=== PATIENT | female | born 1935 | race Caucasian/White ===

== ENCOUNTER 2016-07-03 09:50 | Inpatient (IN) | payer OTHER, SELFPAY ==
[~2016-07-03] VITALS: Ht 160 cm; Wt 56.4 kg
--- NOTE | ~2016-07-03 | EKG ---
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 : 1935 Requested By: Marci Ramsey Order Number: [id number] MD: Waylon Hernandez Measurements Intervals [place] Rate: 133 P: [place]: QRS: 43 QRSD: 80 T: 167 QT: 294 QTc: 438 Interpretive Statements Atrial fibrillation Probable LVH with secondary repol abnrm Baseline wander in lead(s) V1,V3 Compared to ECG 07/03/2016 10:17:05 No significant change was found Electronically Signed On 07-08-2016 8:46:36 LIME PULLER by Waylon Hernandez [email or web address] <ELECTRONICALLY SIGNED> By: Waylon Hernandez MD, [facility] 07/08/16 0846 [id number] 0414 Waylon Hernandez MD, [facility] /EPI
--- NOTE | ~2016-07-03 | P ---
[facility] [place] [address] [place] [address] PROCEDURE REPORT Name: NAYA BRUCE Room #: [facility] M.R[facility]#: [id number] Admission: 07/03/16 Attend Phys: Bruce Ramirez MD Discharge: Date of : 34 Report #: [id number] THIS REPORT FOR: //name// CC: Rusty Whiteside DO Bruce Ramirez MD DATE OF SERVICE: 07/11/[address] Rusty Whiteside and Dr. Bruce Ramirez. PROCEDURE: Diagnostic flexible sigmoidoscopy. INDICATION FOR PROCEDURE: The patient is a very pleasant 81-year-old female with a sudden onset of hematochezia and melena shortly after beginning her Eliquis that she took for sudden onset of atrial fibrillation on 07/08/2016. The etiology of this blood loss is unclear and she has consented to flexible sigmoidoscopy to further evaluate for possible diverticular bleeding. DESCRIPTION OF PROCEDURE: Informed consent for this procedure was obtained prior to the administration of any medication. The risks of the procedure which include bleeding, perforation, infection, complications of sedation and the possibility I could miss something have been explained to the patient and she has indicated her consent by signing. Propofol was slowly titrated before and during this procedure for patient comfort by the anesthesia service. The [employer] colonoscope was introduced through the anal sphincter and advanced under direct visualization to the mid transverse colon. At this point, I was still seeing blood in the lumen and though I tried to clean the colon out further and advance the scope, I really could not see anything beyond this point. Therefore, the scope was slowly withdrawn with circumferential views of the colon taken on the way out from the mid transverse colon to the distal transverse colon, the mucosa appeared normal. There was blood throughout the entire visualized colon. The splenic flexure appeared normal. Descending colon appeared normal. Sigmoid colon appeared normal. I did not see any diverticulosis. Rectum, normal mucosa. Retroflex view did not reveal any other abnormalities. The scope was withdrawn. The patient went to the recovery area in stable condition. She tolerated the procedure well. It should be noted that she had a very poor prep and I spent probably close to an hour trying to clean out the left side of her colon, so I could visualize it adequately but still did not see all portions of the left colon. RECOMMENDATIONS: At this point are for her to have a full colonoscopy prep and a colonoscopy as well as an EGD. I think that also she may need an M2 capsule [address] [address] PROCEDURE REPORT Name: NAYA BRUCE Room #: 216[facility] .R.#: [id number] Admission: 07/03/16 Attend Phys: Bruce Ramirez MD Discharge: Date of : 34 Report #: [id number] study for not able to identify the source of blood loss on the colonoscopy and EGD. Prior to this procedure, I had asked for permission to do an EGD if we did not identify the source on flexible sigmoidoscopy and the patient did not want to have an EGD at this time. Would recommend we monitor her H and H closely. Thank you very much once again for allowing me to participate in her care, Dr. Ramirez and Dr. Whiteside. <ELECTRONICALLY SIGNED> By: Carole Cantu DO 07/11/16 [id number] [id number] Carole Cantu DO /nt
--- NOTE | ~2016-07-03 | HC ---
[facility] [place] [place] [address] CONSULTATION Name: NAYA BRUCE Room #: 216-P [facility] IN M.R.#: [id number] Admission: 07/03/16 Attend Phys: Bruce Ramirez MD Discharge: 07/16/16 Date of : 34 Report #: [id number] THIS REPORT FOR: //name// CC: Rusty Whiteside DO Bruce Hernandez MD DATE OF SERVICE: 07/07/2016 REFERRING PROVIDER: Dr. Nicci Hernandez. REASON FOR CONSULTATION: Pneumonia. CHIEF COMPLAINT: Shortness of breath. HISTORY OF PRESENT ILLNESS: Our group was asked to see the patient in consultation while hospitalized at [facility]. A very pleasant 81-year-old woman with a past medical history significant for COPD, typically on p.r.n. albuterol, which she states she does not need very often. There is no chronic cough or congestion. She is a little bit confused. The daughter assists with some of the history. Patient notes having some injury to one of her toes, having a small fracture and it prompted emergency room visit; however, when the daughter went to pick her up to take her to podiatry appointment, it was noted that she had increasing shortness of breath and brought her to the emergency department 3 days ago. Since that time has developed increasing shortness of breath and productive cough. Chest x-ray today revealed right basilar infiltrate. There was some concern for pulmonary edema related to atrial fibrillation as well as she had some small pleural effusions, has been undergoing some diuresis. However, because of increasing cough and change in radiograph, she started on therapy for community-acquired pneumonia and we were asked to further evaluate. Currently, has some loose cough, unable to produce any sputum, no fevers, chills or sweats. No recent contacts lives alone. No recent travel. No prior history of tuberculosis or other disease. Of note, the patient has had some complaints of dysphagia, states she has to be more intentional about her eating and swallowing and coughing while eating. ALLERGIES: None known. PAST MEDICAL HISTORY: 1. History of COPD, severity not quantified, not oxygen requiring. 2. History of hypertension. 3. History of hypothyroidism. OUTPATIENT MEDICATIONS: Include Synthroid, albuterol, calcium, amlodipine, [facility] [address] [place] [address] CONSULTATION Name: NAYA BRUCE Room #: 216-P [facility] IN M.R.#: [id number] Admission: 07/03/16 Attend Phys: Bruce Ramirez MD Discharge: 07/16/16 Date of : 34 Report #: [id number] lisinopril, multivitamin, cetirizine, Protonix, carvedilol, atorvastatin, triamterene/hydrochlorothiazide. SOCIAL HISTORY: The patient is an active smoker, smoking a few cigarettes daily, lives alone. No alcohol consumption. FAMILY HISTORY: Negative for any pulmonary disease. REVIEW OF SYSTEMS: CONSTITUTIONAL: No fevers, chills or sweats, change in weight or appetite. ENT: No upper respiratory congestion, rhinorrhea, some dysphagia as described in HPI. CARDIOVASCULAR: No chest pains or palpitations. GASTROINTESTINAL: No nausea, vomiting, diarrhea, constipation or abdominal pain. GENITOURINARY: No dysuria, no frequency. INTEGUMENT: Denies any new rash. Notes some bruising in her lower extremities including her left middle toes. MUSCULOSKELETAL: Toe pain as described in the HPI. Rest of 12 point review of systems is normal except for some confusion today which is unusual. PHYSICAL EXAMINATION: VITAL SIGNS: Afebrile, pulse 60, respiratory rate 22, blood pressure 100/60, oxygen saturation 94% on 3 liters. GENERAL: This is a pleasant elderly woman in no distress. HEENT: Clear oropharynx. Mallampati 1 airway. NECK: Supple. No lymphadenopathy. Jugular venous pressure not elevated. LUNGS: Diminished. Right basilar inspiratory crackles and diffuse expiratory wheezes noted. BACK: Revealed significant kyphosis of the upper thoracic spine. CARDIOVASCULAR: Heart was regular. No murmurs appreciated. ABDOMEN: Soft, nontender, no masses. EXTREMITIES: Warm, 2+ pulses and 1+ edema. LABORATORY DATA: White blood cell count 14,000, hemoglobin 9, hematocrit 28, platelet count 246. Sodium 141, potassium 5.0, chloride 104, bicarbonate 30, BUN 52, creatinine 1.6, glucose 104. No arterial blood gas. Chest x-ray reveals hyperinflation consistent with COPD, bibasilar pleural effusions noted. There is a right greater than left basilar infiltrates, worse when compared to prior radiographs. IMPRESSION: 1. Community-acquired pneumonia, would be concerned about aspiration given some of her dysphagia symptoms. 2. Chronic obstructive pulmonary disease with acute exacerbation. 3. Atrial fibrillation. [facility] [address] [place] [address] CONSULTATION Name: NAYA BRUCE Room #: 216-P [facility] IN M.R.#: [id number] Admission: 07/03/16 Attend Phys: Bruce Ramirez MD Discharge: 07/16/16 Date of : 34 Report #: [id number] 4. Pulmonary edema consistent with congestive heart failure. 5. Ongoing tobacco use. 6. Anemia. SUGGEST: 1. Flutter valve for airway clearance. 2. Systemic steroid with taper. 3. Continue with current antibiotics. 4. Speech therapy to evaluate and treat for possible dysphagia with aspiration. 5. Follow radiographs. 6. Ambulate as physical and occupational therapy. Do not mobilize. 7. We will follow along with you. Thank you for requesting our suggestions. <ELECTRONICALLY SIGNED> By: Kimani Bailey MD 07/21/16 0903 1718 0054 Kimani Bailey MD /nt
--- NOTE | ~2016-07-03 | HC ---
[facility] [place] [address] [place] [place] [address] CONSULTATION Name: NAYA BRUCE Room #: 216-P [facility] IN M.R.#: [id number] Admission: 07/03/16 Attend Phys: Bruce Ramirez MD Discharge: 07/16/16 Date of : 34 Report #: [id number] THIS REPORT FOR: //name// CC: Rusty Ramirez DATE OF SERVICE: 07/03/2016 REASON FOR CONSULTATION: Left foot fracture. HISTORY OF PRESENT ILLNESS: The patient is an 81-year-old female, who reports standing up about a week ago and noticing immediate left foot pain on the small toe side in her mid foot, she reports noting swelling and bruising. She has not had any specific treatment besides rest. She denies any other extremity injury. PAST MEDICAL HISTORY: Significant for COPD, hypertension, coronary artery disease, hypothyroidism. HOME MEDICATIONS REPORT: Include albuterol sulfate, calcium carbonate/vitamin D3, amlodipine, levothyroxine, aspirin, lisinopril, multivitamins, cetirizine, pantoprazole, carvedilol, atorvastatin, hydrochlorothiazide/triamterene, polyethylene glycol and acetaminophen. PAST SURGICAL HISTORY: She has had hysterectomy. SOCIAL HISTORY: She smokes about 8 cigarettes a day, typically lives at home by herself. Denies use of any ambulatory aids. She has young female at her bedside, who I believe is her granddaughter. ALLERGIES: No known drug allergies. REVIEW OF SYSTEMS: NEUROLOGIC: She reports numbness and tingling in her right hand upon awakening for the past few days. MUSCULOSKELETAL: See HPI. Denies any other extremity pain. LABORATORY STUDIES: Reviewed from 07/03/2016, which showed an elevated white blood cell count 12.6, hemoglobin 10.1, hematocrit 30.2, platelet count 236. Chemistry: Creatinine is elevated at 1.5. PHYSICAL EXAMINATION: GENERAL: She is alert and oriented, interacts appropriately ____. She is a well-developed, well-nourished female, in no acute distress. VITAL SIGNS: The Emergency Department vital signs done on 07/03/2016 at 09:58 a.m. include a pulse oximetry of 90% on 2 L, blood pressure 154/74, temperature is 36.7, heart rate 78, respiration rate is 18. [address] [address] CONSULTATION Name: NAYA BRUCE Room #: 216-[facility] IN M.R.#: [id number] Admission: 07/03/16 Attend Phys: Bruce Ramirez MD Discharge: 07/16/16 Date of : 34 Report #: [id number] Examination of her bilateral upper extremities, she has some mild diffuse arthritic changes in her digits. She is able to make full fist, full extension. Her sensation is intact to light touch throughout. She moves her wrists, forearms, elbows and shoulders without pain and fully darkened and Tinel's is negative bilaterally at the wrist. Right lower extremity exam: Sensation is intact to light touch throughout. She has brisk capillary refill. EHL, FHL, dorsiflexion and plantar flexion are intact. She has no deformity. Skin is clean, dry and intact. She has no tenderness to palpation throughout the right knee, leg, ankle or foot. No pain with range of motion of the right hip, knee, ankle or foot. Left lower extremity exam, she has some diffuse ecchymosis in her forefoot. 2+ dorsalis pedis pulse and normal sensation. Skin is clean, dry and intact. EHL, FHL, dorsiflexion and plantar flexion are intact. She has tenderness at the fifth metatarsal base. No other focal point tenderness. No tenderness at her ankle, leg, knee or thigh. No pain with range of motion of the left hip, knee or ankle. RADIOGRAPHS: Three views of left foot show an essentially nondisplaced fifth metatarsal base fracture. ASSESSMENT AND PLAN: Acute left fifth metatarsal base fracture. I discussed that at this point, I feel she most likely will do well with conservative treatment. We will order a Cam walker. She is to be nonweightbearing and I have recommended that she see my partner Dr. Figueroa Guzman at [facility] next week. She was given the phone numbers. She was advised to call for an appointment. We will have physical therapy start working with her in order to teach her how to ambulate without weightbearing on that foot. Questions were encouraged and answered to the best of my ability. <ELECTRONICALLY SIGNED> By: Irais Fu MD 07/28/16 1322 1644 0323 Irais Fu MD /nt
--- NOTE | ~2016-07-03 | EKG ---
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 : 1935 Requested By: Shivam Lawson Order Number: [id number] MD: Kenny Phipps Measurements Intervals [place] Rate: 77 P: 107 [place]: 164 QRS: 58 QRSD: 110 T: 99 QT: 376 QTc: 426 Interpretive Statements Incomplete analysis due to missing data in precordial lead(s) Sinus rhythm Artifact in lead(s) I,II,III,aVR,aVL,aVF Missing lead(s): V6 No previous ECG available for comparison Electronically Signed On 07-04-2016 11:07:44 OPERATIONS RESEARCH MANAGER by Kenny Phipps [email or web address] <ELECTRONICALLY SIGNED> By: Kenny Phipps MD 07/04/16 1107 1017 1017 Kenny Phipps MD /EPI
--- NOTE | ~2016-07-03 | EKG ---
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 : 1935 Requested By: Ladi Roe Order Number: [id number] MD: Waylon Hernandez Measurements Intervals [place] Rate: 145 P: [place]: QRS: 28 QRSD: 88 T: 169 QT: 288 QTc: 448 Interpretive Statements Atrial fibrillation with rapid V-rate Nonspecific ST segment abnormality no previous ECGs available for comparison Electronically Signed On 07-08-2016 8:37:06 WELFARE CENTRE MANAGER by Waylon Hernandez [email or web address] <ELECTRONICALLY SIGNED> By: Waylon Hernandez MD, [facility] 07/08/16 0837 D: [id number] Waylon Hernandez MD, FACC /EPI
--- NOTE | ~2016-07-03 | HC ---
[facility] [place] [address] [place] [address] CONSULTATION Name: NAYA BRUCE Room #: 216-P ADM IN M.R.#: [id number] Admission: 07/03/16 Attend Phys: Bruce Ramirez MD Discharge: Date of : 34 Report #: [id number] THIS REPORT FOR: //name// CC: Rusty Ramirez DATE OF SERVICE: 07/07/2016 INDICATION: Atrial fibrillation. HISTORY OF PRESENT ILLNESS: This is an 81-year-old female admitted with dyspnea and chills. She was given a diagnosis of COPD exacerbation and possible mild congestive heart failure. She was started on antibiotics, steroids, and intravenous Lasix. An echocardiogram revealed normal LV systolic function and pulmonary hypertension. The patient has a history of CAD, COPD and chronic renal insufficiency. During hospitalization, her respiratory status has improved slightly. She offers no cardiac complaints of angina, palpitations, or congestion. The initial ECG reveals sinus rhythm. However, the ECG from yesterday revealed atrial fibrillation with a rapid ventricular rate. The patient has no prior history of atrial fibrillation. PAST MEDICAL HISTORY: CAD with cardiac catheterization in 2013, revealing severe 3-vessel CAD. She has seen Dr. Hobson as an outpatient for possible bypass. However, she did not present for followup. History of COPD, not requiring oxygen therapy. History of peripheral vascular disease, status post iliac artery stent years ago. Chronic renal insufficiency with history of right-sided nephrectomy. Hypertension and tobacco use. ALLERGIES: None. MEDICATIONS AT HOME: Include amlodipine 5 mg twice a day, levothyroxine daily, aspirin, lisinopril 20 mg daily, Zyrtec, Coreg 25 mg twice a day, Lipitor 40 mg daily, and Dyazide once a day. SOCIAL HISTORY: Smokes 3 cigarettes per day. FAMILY HISTORY: Negative for premature CAD. REVIEW OF SYSTEMS: A full 10-point review of systems performed. Only the pertinent positives and negatives are described in the HPI. PHYSICAL EXAMINATION: VITAL SIGNS: Blood pressure is 130/80, heart rate is 135 beats per minute. GENERAL APPEARANCE: Elderly appearing female, in no acute respiratory distress. HEAD AND EYES: Normocephalic. Sclerae are anicteric. ENT: Oral mucosa moist. [facility] [address] [place] [address] CONSULTATION Name: NAYA BRUCE Room #: 216-P [facility] IN .R.#: [id number] Admission: 07/03/16 Attend Phys: Bruce Ramirez MD Discharge: Date of : 34 Report #: [id number] NECK: Supple. LUNGS: Diminished breath sounds diffusely. CARDIAC: Tachycardic, S1, S2 positive. ABDOMEN: Soft. EXTREMITIES: No major joint deformities. No edema. LABORATORY VALUES: White count is 13.8, hemoglobin is 9.3. Sodium is 141, potassium is 5.0, BUN is 52, and creatinine is 1.6. ASSESSMENT: 1. Atrial fibrillation with a rapid ventricular rate. It appears to be clinically asymptomatic. She has no prior documentation of atrial fibrillation or atrial flutter. The rate is not adequately controlled with the oral beta isak. We will change to IV Cardizem for better rate control. Given the elevated CHADS score, the patient should be on anticoagulation therapy. Thyroid study should also be evaluated. 2. Coronary artery disease, prior history of multivessel coronary artery disease. Appears to be stable with no overt symptoms of angina. Continue with medical therapy. 3. Congestive heart failure, may have had a mild diastolic components. She did receive 2 doses of IV Lasix. I agree that she appears euvolemic at this time and no additional diuretic therapy is indicated. 4. Chronic obstructive pulmonary disease, chronic tobacco use, will benefit from a pulmonary evaluation. 5. Chronic renal insufficiency/nephrectomy. 6. Peripheral vascular disease. Thank you for allowing me to participate in the care of your patient. <ELECTRONICALLY SIGNED> By: Woody Ceron MD 07/08/16 0838 0903 0927 Woody Ceron MD /nt
--- NOTE | ~2016-07-03 | HC ---
[facility] [place] [address] CONSULTATION Name: NAYA BRUCE Room #: 216-P ADM IN M.R.#: [id number] Admission: 07/03/16 Attend Phys: Bruce Ramirez MD Discharge: Date of : 33 Report #: [id number] THIS REPORT FOR: //name// CC: Rusty Ramirez DATE OF SERVICE: 07/09/2016 NEPHROLOGY CONSULTATION REASON FOR CONSULTATION: Elevated creatinine. HISTORY OF PRESENT ILLNESS: This is an 81-year-old female who was admitted about 6 days ago. She had been having problems with the foot and was getting evaluated for that, but then developed worsening dyspnea. She presented with some hypoxemia, COPD exacerbation. There was concern she also had some volume overload and mild congestive heart failure. She has undergone some diuresis over that time. We are asked to see her because her creatinine level which has been running in the 1.4 to 1.6 range is up to 1.8 today. In talking with the patient, she has had a previous nephrectomy. She thinks it was her right kidney, but she is uncertain if that was the case. It was done laparoscopically, so the scars are not revealing in that sense. She tells me she had a renal cell carcinoma and that nephrectomy was done about 10 years ago, which would have been in her early 70s. She has been unaware of what her creatinine has done over that time. She does not remember any history of renal problems prior to the nephrectomy. She does not have an extensive exposure to nonsteroidals. She has not had hematuria, proteinuria, urinary tract infections or nephrolithiasis. She had a U/A a couple of days ago, which is totally remarkable including no proteinuria. PAST MEDICAL HISTORY: She has been a long-term smoker and has some COPD. She is on oxygen here, but normally does not wear oxygen at home. She has a history of hypertension, chronically on lisinopril and carvedilol at home. She is also chronically on some triamterene and hydrochlorothiazide. She has hypothyroidism, on replacement. She has had more recent problems with left foot fracture and that foot is currently in a boot. She has had previous hysterectomy. She has had some atrial fibrillation, rapid ventricular response. She has been on anticoagulation and diltiazem and a beta isak for control of that. CURRENT MEDICATIONS: Include furosemide, recently at 40 mg b.i.d., but decreased earlier today by Dr. Partida to 40 mg once a day; amiodarone 200 mg b.i.d.; diltiazem 100 mg daily; Eliquis 2.5 mg b.i.d.; multiple inhalers; atenolol 25 mg b.i.d.; Zosyn; loratadine 10 mg daily; pantoprazole 40 mg daily; levothyroxine 0.05 mg daily; atorvastatin 20 mg daily and several p.r.n. [address] [address] CONSULTATION Name: NAYA BRUCE Room #: 216-P [facility] IN M.R.#: [id number] Admission: 07/03/16 Attend Phys: Bruce Ramirez MD Discharge: Date of : 33 Report #: [id number] medications. She was started on some prednisone, but that is now on a taper. ALLERGIES: No known medical allergies. FAMILY HISTORY: Negative for any renal disease. SOCIAL HISTORY: The patient is , retired, lives in the [place] area. She was born and raised in [place], but came over to the [facility] in the 1960s. She worked for many years, but is now retired. REVIEW OF SYSTEMS: She states she is starting to feel better. She still has some dyspnea and cough. No current sputum production. No chest pain or palpitations. Appetite is poor. Denies nausea or vomiting. Tends towards constipation. No diarrhea. No difficulty voiding urine and says her urine has a normal appearance. She still has some lower extremity edema. Left foot is in the boot. Denies fevers, chills or sweats. PHYSICAL EXAMINATION: VITAL SIGNS: Blood pressure 120/79, heart rate 98 and temperature 98.0. HEENT EXAMINATION: Shows pupils are equal and reactive. Sclerae nonicteric. Oral mucosa is moist. NECK: Neck veins are not distended. Neck is supple. No adenopathy. CHEST: Shows a few wheezes and a few rhonchi bilaterally. HEART: Has a regular rate and rhythm. ABDOMEN: Has active bowel sounds. It is nontender at this time. I cannot palpate organomegaly or masses. There is no CVA tenderness on either side. EXTREMITIES: Show 1+ bilateral lower extremity edema. Left foot remains in a boot. No upper extremity edema. LABORATORY DATA: Sodium 140, potassium 4.1, chloride 100, bicarbonate 29, BUN 47, creatinine 1.8, glucose 131 and calcium 9.0. White count 13.9, hemoglobin 9.1, hematocrit 28.0 and platelets 241,000. Recent urinalysis; specific gravity 1.015, pH 6.0. Negative dipstick and negative microscopic exam. ASSESSMENT: 1. Chronic kidney disease stage III. Her major etiology here is that she had an nephrectomy in her 70s for a renal cell carcinoma, thus cutting her glomerular number in half. This is too late in life to see the rebound from the other kidney, once that nephrectomy is done. She has had a mild increase while here in the hospital and she has been getting fairly aggressive diuresis. She states that she does feel better with the diuresis, so I think it has probably been an appropriate. The dose was decreased today and she still has some mild lower extremity edema. So, we may see that creatinine level stay up somewhat. I see no other nephrotoxic exposures or other intrinsic renal problems. Her urinalysis was totally negative, including no proteinuria. I do not think we need to pursue an additional workup from a renal standpoint. [facility] [address] [place] [address] CONSULTATION Name: NAYA BRUCE Room #: 216-P ADM IN M.R.#: [id number] Admission: 07/03/16 Attend Phys: Bruce Ramirez MD Discharge: Date of : 33 Report #: [id number] 2. Remote renal cell carcinoma, post nephrectomy without recurrence. 3. Chronic obstructive pulmonary disease exacerbation, as noted above. She is slowly improving. 4. Mild congestive heart failure. She is diuresed well. I think it is appropriate to cut back on her furosemide. I do not think she needs additional brisk diuresis. 5. Atrial fibrillation, on anticoagulation and also on amiodarone, rate currently controlled. 6. Diabetes. PLAN: 1. I will make no changes in medications as her diuretic dose was already changed. 2. Repeat labs in the morning. 3. She is aware of avoiding nonsteroidals and that needs to be continued. 4. I will check in on her tomorrow, but I do not anticipate much change from a renal standpoint going forward. <ELECTRONICALLY SIGNED> By: Carlos Banuelos MD 07/10/16 0853 1223 1317 Carlos Banuelos MD /nt
--- NOTE | ~2016-07-03 | 2DMMODE ---
[facility] [place] [address] 2 D/M-MODE ECHOCARDIOGRAM Name: NAYA BRUCE Room #: 403-P [facility] IN .R.#: [id number] Admission: 07/03/16 Attend Phys: Bruce Ramirez, Discharge: Date of : 33 Date of Service: 07/03/16 1351 Report #: [id number] THIS REPORT FOR: //name// Transthoracic Echocardiography Ordering physician: Minna Eric Referring physician: Rusty Whiteside Saida A. Spring Encaser: JANEL Rutledge Indications/History: COPD, SOA, HTN. BP: 125 / HR: 82bpm Height: 65in Weight: 99.8lb 57 Study data: M-mode, complete 2D, complete spectral Doppler, and color Doppler. Location: Echo laboratory. Routine. Image quality was good. 2D measurements Normal Normal LVID ED 33.5mm 36-57 IVS ED 12.4mm 6-11 LVID ES 22.7mm 23-40 LVPW ED 12.1mm 6-11 LA volume 35ml/m2 16-28 AoRoot diam 27.4mm 21-37 index ED LVOT diameter 18mm 18-23 Findings: Left ventricle: The cavity size was normal. Wall thickness was increased in a pattern of mild LVH. Systolic function was normal. The estimated ejection fraction was in the range of 60% to 65%. Wall motion was normal. Right ventricle: The cavity size was dilated. Systolic function was normal. Right atrium: The atrium was dilated. Left atrium: The atrium was mildly dilated. Volume index: 35ml/m2 (S). Aortic valve: Trileaflet; mildly thickened, mildly calcified leaflets. Doppler: There was no stenosis. No regurgitation. Peak velocity: 127.1cm/s (S). [facility] [address] [place] [address] 2 D/M-MODE ECHOCARDIOGRAM Name: TEO,NAYA Room #: 403-P [facility] IN Yvette.#: [id number] Admission: 07/03/16 Attend Phys: Bruce Ramirez, Discharge: Date of : 33 Date of Service: 07/03/16 1351 Report #: [id number] Mitral valve: Mildly calcified annulus. Doppler: There was no evidence for stenosis. Mild regurgitation. Peak E-wave velocity: 121.4cm/s. Peak gradient: 5.9mm Hg (D). Peak A-wave velocity: 82.1cm/s. Tricuspid valve: Structurally normal valve. Doppler: There was no evidence for stenosis. Mild-moderate regurgitation. Regurgitant peak velocity: 320.3cm/s. Peak RV-RA gradient: 41mm Hg (S). Pulmonic valve: Structurally normal valve. Doppler: There was no evidence for stenosis. Mild regurgitation. Pericardium: There was no pericardial effusion. Aorta: Aortic root: The aortic root was normal in size. Pulmonary artery: Systolic pressure was estimated to be 51mm Hg. Diastolic function: Normal diastolic function. Systemic veins: Inferior vena cava: The vessel was dilated; the respirophasic diameter changes were blunted (< 50%). Conclusions 1. Left ventricle: The cavity size was normal. Wall thickness was increased in a pattern of mild LVH. Systolic function was normal. The estimated ejection fraction was in the range of 60% to 65%. 2. Right ventricle: The cavity size was dilated. 3. Right atrium: The atrium was dilated. 4. Left atrium: The atrium was mildly dilated. 5. Aortic valve: Trileaflet; mildly thickened, mildly calcified leaflets. No regurgitation. 6. Mitral valve: Mildly calcified annulus. Mild regurgitation. 7. Pulmonic valve: Mild regurgitation. 8. Tricuspid valve: Mild-moderate regurgitation. 9. Pulmonary arteries: Systolic pressure was estimated to be 51mm Hg. <ELECTRONICALLY SIGNED> By: Pravin Laczano MD 07/03/161912 1351 12 Pravin Lazcano MD /chang
[~2016-07-03 09:50] MED LIST: ADULT LOW DOSE81 MG PO; ATORVASTATIN CA40 MG PO; BENICAR HCT 201 EACH PO; CALCIUM +D & M1 EAC1 PO; CALCIUM 600 +1 EAC1 PO; CARVEDILOL25 MG PO; CIPRO250 M1; CLONIDINE HCL0.2 M2 PO; CLONIDINE HCL0.3 M2 PO; DAILY VITAMIN1 EAC5 PO; FOSAMAX 70 MG T70 M1 PO; LEVOTHYROXINE0.05 MG PO; LISINOPRIL20 MG PO; LOPRESSOR100 MG PO; MACRODANTIN100 MG PO; MEPILEX1 EACH; MIRALAX17 GM PO; MIRALAX255 GM PO; NORCO 5-325 TA1 EACH; NORVASC 5 MG TAB5 MG PO; PROAIR HFA8.5 GM INH; PROTONIX40 M4 PO; TRIAMTERENE/HCT1 CA1 PO; TYLENOL325 MG PO; ZESTRIL40 MG PO; ZYRTEC10 MG PO
[2016-07-03 09:58] VITALS: BP 154/74
[2016-07-03 10:23] LABS: HEMATOCRIT 30.2 % (37.0-47.0); HEMOGLOBIN 10.1 gm/dL (12.0-15.0); MCH 30.5 pg (26.0-34.0); MCHC 33.4 % (28.0-37.0); MCV 91.5 fL (80.0-100.0); PLATELET COUNT 236 thou/uL (150-400); RDW 14.8 % (10.5-14.5); WBC 12.6 thou/uL (4.0-11.0)
[2016-07-03 10:27] LABS: MANUAL DIFF YES
[2016-07-03 10:36] LABS: ANION GAP 8 mmol/L (7-16); BUN 45 mg/dL (7-18); CALCIUM 9.4 mg/dL (8.5-10.1); CHLORIDE 101 mmol/L (98-107); CO2 28 mmol/L (21-32); CREATININE 1.5 mg/dL (0.6-1.3); GLUCOSE 102 mg/dL (70-99); POTASSIUM 4.9 mmol/L (3.5-5.1); SODIUM 137 mmol/L (136-145)
[2016-07-03 10:43] LABS: ABSOLUTE NEUTROPHILS 11.2 thou/uL (1.4-8.2); TOTAL CELL COUNT 100
[2016-07-03 10:44] LABS: PLATELET ESTIMATE NORMAL
[2016-07-03 10:45] LABS: MAGNESIUM 2.1 mg/dL (1.8-2.4); TROPONIN-I < 0.04 ng/mL (<0.04-0.07)
[2016-07-03 12:50] VITALS: BP 125/57
[2016-07-03 13:00] VITALS: BP 148/91
[2016-07-04 00:30] VITALS: BP 165/90
[2016-07-04 05:24] VITALS: BP 176/93
[2016-07-04 05:30] LABS: ALBUMIN 2.9 g/dL (3.4-5.0); CALCIUM 8.7 mg/dL (8.5-10.1); CREATININE 1.4 mg/dL (0.6-1.3); TOTAL BILIRUBIN 0.3 mg/dL (<0.1-1.0); TOTAL PROTEIN 5.6 g/dL (6.4-8.2)
[2016-07-04 08:33] VITALS: BP 173/93
[2016-07-04 17:00] VITALS: BP 167/83
[2016-07-04 22:10] VITALS: BP 153/86
[2016-07-05 03:55] VITALS: BP 149/76
[2016-07-05 05:35] LABS: ABSOLUTE NEUTROPHILS 16.4 thou/uL (1.4-8.2); BASOPHILS 0.1 % (0.0-2.0); HEMATOCRIT 27.9 % (37.0-47.0); LYMPHOCYTES 2.2 % (24.0-44.0); MCH 29.8 pg (26.0-34.0); MCHC 32.3 % (28.0-37.0); MCV 92.3 fL (80.0-100.0); MONOCYTES 3.2 % (1.0-8.0); PLATELET COUNT 221 thou/uL (150-400); POLYS 94.5 % (36.0-66.0); RBC 3.02 mil/uL (4.20-5.00); RDW 14.5 % (10.5-14.5); WBC 17.4 thou/uL (4.0-11.0)
[2016-07-05 05:41] LABS: MANUAL DIFF NO
[2016-07-05 05:48] LABS: CALCIUM 8.2 mg/dL (8.5-10.1); CREATININE 1.3 mg/dL (0.6-1.3); POTASSIUM 3.4 mmol/L (3.5-5.1)
[2016-07-05 08:19] VITALS: BP 135/78
[2016-07-05 17:14] VITALS: BP 137/75
[2016-07-05 20:00] VITALS: BP 130/78
[2016-07-06 04:30] VITALS: BP 122/82
[2016-07-06 04:31] LABS: HEMATOCRIT 29.8 % (37.0-47.0); HEMOGLOBIN 9.7 gm/dL (12.0-15.0); MCHC 32.6 % (28.0-37.0); MCV 92.3 fL (80.0-100.0); PLATELET COUNT 248 thou/uL (150-400); RBC 3.23 mil/uL (4.20-5.00); RDW 14.7 % (10.5-14.5)
[2016-07-06 05:01] LABS: MANUAL DIFF YES
[2016-07-06 05:24] LABS: CALCIUM 8.7 mg/dL (8.5-10.1); CREATININE 1.5 mg/dL (0.6-1.3); POTASSIUM 4.2 mmol/L (3.5-5.1)
[2016-07-06 06:45] LABS: ABSOLUTE NEUTROPHILS 12.3 thou/uL (1.4-8.2); PLATELET ESTIMATE NORMAL; TOTAL CELL COUNT 100
[2016-07-06 08:15] VITALS: BP 125/75
[2016-07-06 16:44] LABS: URINE BILIRUBIN NEGATIVE (Negative); URINE BLOOD NEGATIVE (Negative); URINE COLOR YELLOW; URINE GLUCOSE-RANDOM* NEGATIVE (Negative); URINE KETONES NEGATIVE (Negative); URINE LEUKOCYTES-REFLEX NEGATIVE (Negative); URINE PROTEIN (DIPSTICK) NEGATIVE (Negative); URINE SPECIFIC GRAVITY 1.015 (1.003-1.035); URINE UROBILINOGEN 0.2 E.U./dl (0.2-1.0)
[2016-07-06 16:52] VITALS: BP 128/98
[2016-07-06 19:50] VITALS: BP 128/89
[2016-07-06 23:58] VITALS: BP 149/91
[2016-07-07] VITALS (7 sets, daily range): BP systolic 100–143; BP diastolic 60–91
[2016-07-07 06:00] LABS: HEMATOCRIT 28.1 % (37.0-47.0); HEMOGLOBIN 9.3 gm/dL (12.0-15.0); MCH 30.1 pg (26.0-34.0); MCHC 32.9 % (28.0-37.0); MCV 91.4 fL (80.0-100.0); PLATELET COUNT 246 thou/uL (150-400); RBC 3.07 mil/uL (4.20-5.00); RDW 14.9 % (10.5-14.5); WBC 13.8 thou/uL (4.0-11.0)
[2016-07-07 06:25] LABS: CALCIUM 8.8 mg/dL (8.5-10.1); CREATININE 1.6 mg/dL (0.6-1.3)
[2016-07-07 06:32] LABS: MANUAL DIFF YES
[2016-07-07 08:49] LABS: ABSOLUTE NEUTROPHILS 11.7 thou/uL (1.4-8.2); TOTAL CELL COUNT 100
[2016-07-07 08:50] LABS: ANISOCYTOSIS SLIGHT
[2016-07-08 01:11] VITALS: BP 126/78
[2016-07-08 01:15] VITALS: BP 126/78
[2016-07-08 02:48] LABS: HEMATOCRIT 27.4 % (37.0-47.0); HEMOGLOBIN 9.2 gm/dL (12.0-15.0); MCH 30.5 pg (26.0-34.0); MCHC 33.5 % (28.0-37.0); PLATELET COUNT 235 thou/uL (150-400); RBC 3.01 mil/uL (4.20-5.00); RDW 14.5 % (10.5-14.5); WBC 12.5 thou/uL (4.0-11.0)
[2016-07-08 03:00] LABS: MANUAL DIFF YES
[2016-07-08 03:01] LABS: CREATININE 1.6 mg/dL (0.6-1.3); POTASSIUM 5.3 mmol/L (3.5-5.1)
[2016-07-08 04:07] LABS: ABSOLUTE NEUTROPHILS 11.4 thou/uL (1.4-8.2); OVALOCYTES OCCASIONAL; TOTAL CELL COUNT 100
[2016-07-08 04:25] VITALS: BP 151/81
[2016-07-08 10:55] VITALS: BP 139/69
[2016-07-08 15:25] VITALS: BP 149/86
[2016-07-08 19:13] VITALS: BP 105/70
[2016-07-09] VITALS: BP 117/86
[2016-07-09 03:12] LABS: ABSOLUTE NEUTROPHILS 12.4 thou/uL (1.4-8.2); BASOPHILS 0.1 % (0.0-2.0); HEMOGLOBIN 9.1 gm/dL (12.0-15.0); LYMPHOCYTES 4.6 % (24.0-44.0); MCHC 32.6 % (28.0-37.0); MCV 92.1 fL (80.0-100.0); MONOCYTES 5.7 % (1.0-8.0); PLATELET COUNT 241 thou/uL (150-400); POLYS 89.6 % (36.0-66.0); RBC 3.04 mil/uL (4.20-5.00); RDW 14.2 % (10.5-14.5); WBC 13.9 thou/uL (4.0-11.0)
[2016-07-09 03:16] LABS: MANUAL DIFF NO
[2016-07-09 03:20] LABS: CREATININE 1.8 mg/dL (0.6-1.3); POTASSIUM 4.1 mmol/L (3.5-5.1)
[2016-07-09 04:20] VITALS: BP 129/79
[2016-07-09 07:53] VITALS: BP 128/79
[2016-07-09 12:23] VITALS: BP 112/73
[2016-07-09 16:33] VITALS: BP 102/72
[2016-07-09 19:30] VITALS: BP 118/80
[2016-07-10 03:52] LABS: CALCIUM 8.7 mg/dL (8.5-10.1); CREATININE 1.9 mg/dL (0.6-1.3)
[2016-07-10 04:04] VITALS: BP 113/56
[2016-07-10 08:04] VITALS: BP 131/96
[2016-07-10 08:09] LABS: INFLUENZA B Negative (Negative); METAPNEUMOVIRUS Negative (Negative)
[2016-07-10 12:52] VITALS: BP 109/67
[2016-07-10 16:58] VITALS: BP 131/80
[2016-07-10 20:01] VITALS: BP 134/87
[2016-07-10 22:36] LABS: HEMATOCRIT 24.8 % (37.0-47.0); HEMOGLOBIN 8.2 gm/dL (12.0-15.0)
[2016-07-11 03:59] LABS: HEMATOCRIT 24.6 % (37.0-47.0); HEMOGLOBIN 8.2 gm/dL (12.0-15.0); MCHC 33.4 % (28.0-37.0); RBC 2.73 mil/uL (4.20-5.00); RDW 14.6 % (10.5-14.5); WBC 13.8 thou/uL (4.0-11.0)
[2016-07-11 04:11] LABS: CALCIUM 8.8 mg/dL (8.5-10.1); CREATININE 1.9 mg/dL (0.6-1.3); POTASSIUM 4.4 mmol/L (3.5-5.1)
[2016-07-11 04:31] LABS: ALBUMIN 2.6 g/dL (3.4-5.0); DIRECT BILIRUBIN 0.1 mg/dL (<0.1-0.3); TOTAL BILIRUBIN 0.3 mg/dL (<0.1-1.0); TOTAL PROTEIN 4.8 g/dL (6.4-8.2)
[2016-07-11 04:35] VITALS: BP 122/86
[2016-07-11 07:45] VITALS: BP 137/88
[2016-07-11 13:50] LABS: HEMATOCRIT 25.4 % (37.0-47.0); HEMOGLOBIN 8.3 gm/dL (12.0-15.0)
[2016-07-11 19:50] VITALS: BP 107/66
[2016-07-12 05:02] LABS: HEMATOCRIT 26.7 % (37.0-47.0); HEMOGLOBIN 8.5 gm/dL (12.0-15.0); MCH 29.7 pg (26.0-34.0); MCHC 31.9 % (28.0-37.0); PLATELET COUNT 319 thou/uL (150-400); RBC 2.87 mil/uL (4.20-5.00); RDW 14.5 % (10.5-14.5); WBC 17.9 thou/uL (4.0-11.0)
[2016-07-12 05:15] VITALS: BP 133/88
[2016-07-12 05:26] LABS: MANUAL DIFF YES
[2016-07-12 05:42] LABS: CALCIUM 9.1 mg/dL (8.5-10.1); CREATININE 1.9 mg/dL (0.6-1.3); POTASSIUM 4.7 mmol/L (3.5-5.1)
[2016-07-12 07:35] VITALS: BP 127/92
[2016-07-12 07:47] LABS: ABSOLUTE NEUTROPHILS 16.5 thou/uL (1.4-8.2); TOTAL CELL COUNT 100
[2016-07-12 12:21] VITALS: BP 104/75
[2016-07-12 19:41] VITALS: BP 105/72
[2016-07-13 03:54] VITALS: BP 106/70
[2016-07-13 04:35] LABS: EOSINOPHILS 0.2 % (0.0-3.0); HEMATOCRIT 23.5 % (37.0-47.0); HEMOGLOBIN 7.8 gm/dL (12.0-15.0); LYMPHOCYTES 10.1 % (24.0-44.0); MCH 29.8 pg (26.0-34.0); MCV 90.5 fL (80.0-100.0); MONOCYTES 6.4 % (1.0-8.0); PLATELET COUNT 270 thou/uL (150-400); POLYS 83.3 % (36.0-66.0); RDW 14.8 % (10.5-14.5); WBC 14.5 thou/uL (4.0-11.0)
[2016-07-13 04:43] LABS: MANUAL DIFF NO
[2016-07-13 04:47] LABS: ALBUMIN 2.6 g/dL (3.4-5.0); PHOSPHORUS 3.4 mg/dL (2.5-4.9); POTASSIUM 4.5 mmol/L (3.5-5.1)
[2016-07-13 09:30] VITALS: BP 132/76
[2016-07-13 13:20] VITALS: BP 104/69
[2016-07-13 18:00] VITALS: BP 114/61
[2016-07-13 20:12] VITALS: BP 139/91
[2016-07-14 04:06] LABS: HEMATOCRIT 22.7 % (37.0-47.0); HEMOGLOBIN 7.5 gm/dL (12.0-15.0); MCH 29.9 pg (26.0-34.0); MCHC 32.9 % (28.0-37.0); RBC 2.49 mil/uL (4.20-5.00); RDW 14.4 % (10.5-14.5); WBC 11.1 thou/uL (4.0-11.0)
[2016-07-14 04:18] LABS: ALBUMIN 2.5 g/dL (3.4-5.0); CALCIUM 8.8 mg/dL (8.5-10.1); CREATININE 1.9 mg/dL (0.6-1.3); PHOSPHORUS 3.2 mg/dL (2.5-4.9); POTASSIUM 4.3 mmol/L (3.5-5.1)
[2016-07-14 04:43] VITALS: BP 129/70
[2016-07-14 08:00] VITALS: BP 113/54
[2016-07-14 11:15] VITALS: BP 111/65
[2016-07-14 16:20] VITALS: BP 108/60
[2016-07-14 20:37] VITALS: BP 136/81
[2016-07-15] VITALS (7 sets, daily range): BP systolic 112–163; BP diastolic 47–81
[2016-07-15 03:32] LABS: ABSOLUTE NEUTROPHILS 15.8 thou/uL (1.4-8.2); HEMATOCRIT 22.4 % (37.0-47.0); LYMPHOCYTES 3.5 % (24.0-44.0); MCHC 33.1 % (28.0-37.0); MCV 90.8 fL (80.0-100.0); MONOCYTES 3.7 % (1.0-8.0); PLATELET COUNT 260 thou/uL (150-400); POLYS 92.8 % (36.0-66.0); RBC 2.47 mil/uL (4.20-5.00); RDW 14.6 % (10.5-14.5)
[2016-07-15 03:36] LABS: MANUAL DIFF NO
[2016-07-15 03:37] LABS: CREATININE 1.9 mg/dL (0.6-1.3); MAGNESIUM 1.9 mg/dL (1.8-2.4); POTASSIUM 4.1 mmol/L (3.5-5.1)
[2016-07-15 04:00] LABS: HEMOGLOBIN 7.4 gm/dL (12.0-15.0)
[2016-07-15 12:20] LABS: HEMATOCRIT 23.7 % (37.0-47.0); HEMOGLOBIN 7.9 gm/dL (12.0-15.0)
[2016-07-16 03:35] VITALS: BP 153/75
[2016-07-16 03:59] LABS: ABSOLUTE NEUTROPHILS 14.7 thou/uL (1.4-8.2); BASOPHILS 0.1 % (0.0-2.0); HEMATOCRIT 27.3 % (37.0-47.0); HEMOGLOBIN 8.8 gm/dL (12.0-15.0); LYMPHOCYTES 5.1 % (24.0-44.0); MANUAL DIFF NO; MCH 29.3 pg (26.0-34.0); MCHC 32.4 % (28.0-37.0); MCV 90.4 fL (80.0-100.0); MONOCYTES 6.5 % (1.0-8.0); PLATELET COUNT 253 thou/uL (150-400); POLYS 88.3 % (36.0-66.0); RBC 3.02 mil/uL (4.20-5.00); RDW 15.1 % (10.5-14.5); WBC 16.6 thou/uL (4.0-11.0)
[2016-07-16 04:14] LABS: ALBUMIN 2.7 g/dL (3.4-5.0); CALCIUM 8.9 mg/dL (8.5-10.1); CREATININE 1.8 mg/dL (0.6-1.3); POTASSIUM 3.8 mmol/L (3.5-5.1); TOTAL BILIRUBIN 0.4 mg/dL (<0.1-1.0)
[2016-07-16 08:06] VITALS: BP 165/82
[2016-07-16 11:30] VITALS: BP 179/91
[2016-07-16] MEDS ORDERED: TORSEMIDE20 MG PO (14:00)
[2016-07-16] MEDS ORDERED: PACERONE 200 M200 M1 PO (14:00)
[2016-07-16] MEDS ORDERED: CARDIZEM CD240 MG PO (14:00)
[2016-07-16] MEDS ORDERED: ATENOLOL 25MG T25 M1 PO (14:00)
[2016-07-16] MEDS ORDERED: COLACE 100 MG100 MG PO (14:00)
[2016-07-16] MEDS ORDERED: BENZONATATE100 MG PO (14:00)
[2016-07-17 01:12] LABS: IRON 48
[2016-07-17 01:13] LABS: UIBC 244
[2016-07-17 01:14] LABS: % SATURATION 16; TIBC 292
[2016-08-12] MEDS ORDERED: ARIXTRA SUBQ (16:46)
[2016-08-12] MEDS ORDERED: ATORVASTATIN CA40 MG PER TUBE (16:46)
[2016-08-12] MEDS ORDERED: PEDIA-LAX50 MG/15 M PER TUBE (16:46)
[2016-08-12] MEDS ORDERED: PULMICORT0.5 MG/21 INH (16:46)
[2016-08-12] MEDS ORDERED: XOPENEX 0.63 MG/3 M1 INH (16:46)
[2016-08-12] MEDS ORDERED: MIRALAX17 GM PO (16:46)
[2016-08-12] MEDS ORDERED: TORSEMIDE20 MG PER TUBE (16:46)
[2016-08-12] MEDS ORDERED: PROTONIX40 M4 PER TUBE (16:46)
[2016-08-12] MEDS ORDERED: PACERONE 200 M200 M1 PER TUBE (16:46)
[2016-08-12] MEDS ORDERED: IPRATROPIU0.2 MG/1 M INH (16:46)
[2016-08-12] MEDS ORDERED: LEVOTHYROXINE0.05 MG PER TUBE (16:46)
[2016-08-12] MEDS ORDERED: ATENOLOL 25MG T25 M1 PER TUBE (16:48)
== END 2016-07-16 16:50 | disposition short-term general hospital (02) | DRG 177 ==
LOC: ER 09:50 → 4N 12:21 → 2N 07-07 10:12
PROVIDERS: Hospitalist; Internal Medicine; Internal Medicine Cardiovascular Disease; Internal Medicine Endocrinology, Diabetes & Metabolism; Internal Medicine Gastroenterology; Internal Medicine Geriatric Medicine; Internal Medicine Pulmonary Disease; Nurse Practitioner; Nurse Practitioner Acute Care; Nurse Practitioner Adult Health; Physician Assistant; Specialist
PROC: 0DJD8ZZ Inspection of Lower Intestinal Tract, Via Natural or Artificial Opening Endoscopic (ICD-10-PCS; principal; 2016-07-11)
PROC: 30233N1 Transfusion of Nonautologous Red Blood Cells into Peripheral Vein, Percutaneous Approach (ICD-10-PCS; 2016-07-15)
DX: J15.6 Pneumonia due to other Gram-negative bacteria (principal); I50.33 Acute on chronic diastolic (congestive) heart failure; J96.21 Acute and chronic respiratory failure with hypoxia; N17.0 Acute kidney failure with tubular necrosis; E43 Unspecified severe protein-calorie malnutrition; J44.1 Chronic obstructive pulmonary disease with (acute) exacerbation; I13.0 Hypertensive heart and chronic kidney disease with heart failure and stage 1 through stage 4 chronic kidney disease, or unspecified chronic kidney disease; K62.5 Hemorrhage of anus and rectum; S92.352A Displaced fracture of fifth metatarsal bone, left foot, initial encounter for closed fracture; J44.9 Chronic obstructive pulmonary disease, unspecified; I25.10 Atherosclerotic heart disease of native coronary artery without angina pectoris; E03.9 Hypothyroidism, unspecified; F17.210 Nicotine dependence, cigarettes, uncomplicated; D64.9 Anemia, unspecified; I48.91 Unspecified atrial fibrillation; N18.3 Chronic kidney disease, stage 3 (moderate); E11.22 Type 2 diabetes mellitus with diabetic chronic kidney disease; E11.51 Type 2 diabetes mellitus with diabetic peripheral angiopathy without gangrene; E87.6 Hypokalemia; K59.00 Constipation, unspecified; E87.5 Hyperkalemia; X58.XXXA Exposure to other specified factors, initial encounter; Z79.01 Long term (current) use of anticoagulants; Y93.89 Activity, other specified; Y92.89 Other specified places as the place of occurrence of the external cause; Z90.710 Acquired absence of both cervix and uterus; Z79.899 Other long term (current) drug therapy; Z90.5 Acquired absence of kidney; Z79.82 Long term (current) use of aspirin; Y99.8 Other external cause status
CPT/HCPCS: 10081; 10790; 62110; 62900; 70005